=== PATIENT | male | born 1985 | race Caucasian/White ===

== ENCOUNTER 2018-08-06 22:40 | Emergency (ER) | payer MEDICAID ==
[~2018-08-06] VITALS: Ht 175.3 cm; Wt 103.4 kg
[2018-08-06 22:49] VITALS: Ht 175.3 cm; Wt 103.4 kg
[2018-08-07 01:40] VITALS: BP 104/61
[2018-08-11 12:05] LABS: RAPID PLASMA REAGIN Reactive (Non Reactive)
== END 2018-08-07 01:40 | disposition home or self-care (01) ==
LOC: ED 22:40
PROVIDERS: Emergency Medicine
DX: N48.89 Other specified disorders of penis (principal); I10 Essential (primary) hypertension; F12.90 Cannabis use, unspecified, uncomplicated; F11.90 Opioid use, unspecified, uncomplicated; Z87.39 Personal history of other diseases of the musculoskeletal system and connective tissue
CPT/HCPCS: 82962; 87491; 87591; J0696